=== PATIENT | male | born 1985 | race American Indian/Alaskan Native ===

== ENCOUNTER 2018-12-04 21:34 | Emergency (ER) | payer OTHER ==
[2018-12-04 21:45] VITALS: BMI 19.6
[2018-12-04] MEDS ORDERED: TDAP Vaccine 0.5 mL Syr IM ONE (22:24)
[2018-12-04] MEDS ORDERED: Morphine 2 mg/ml ISec IVP STA (22:26)
[2018-12-04] MEDS ORDERED: Iodixanol 320 MG/ML 100 ML BOTTLE IV ONE ×2 (22:44→23:16)
[2018-12-04 23:27] LABS: BASO # 0.04 K/mm3 (0.0-2.0); BASO % 0.3 % (0.0-3.0); EOS % 0.1 % (1.5-5.0); HEMOGLOBIN 13.5 g/dL (14.0-18.0); LYMPH % 7.2 % (22.0-35.0); MEAN CELL VOLUME 93.4 fl (80.0-105.0); MEAN CORPUSCULAR HEMOGLOBIN 29.9 pg (25.0-35.0); MEAN PLATELET VOLUME 10.2 fl (7.0-11.0); MONO # 0.7 (0.1-0.6); RBC 4.52 10^6/uL (3.5-6.1); RED CELL DISTRIBUTION WIDTH 13.6 % (11.5-14.5); WHITE BLOOD COUNT 14.1 10^3/uL (4.5-11.0)
[2018-12-04 23:30] LABS: ALB/GLOB RATIO 1.4 (1.1-1.8); ALBUMIN 4.5 g/dL (3.0-4.8); ALT/SGPT 22 U/L (7-56); AST/SGOT 53 U/L (17-59); BLOOD UREA NITROGEN 19 mg/dL (7-21); GFR NON-AFRICAN AMERICAN > 60
[2018-12-04 23:47] LABS: INR 0.9; PARTIAL THROMBOPLASTIN TIME 26.5 Seconds (26.9-38.3)
[2018-12-05 00:08] VITALS: BP 130/89
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
[2018-12-05] MEDS ORDERED: Morphine 2 mg/ml ISec IVP STA (01:08)
[2018-12-05 02:12] VITALS: PULSE 81; RESP 23; TEMP 98.2; O2SAT 98
--- NOTE | 2018-12-05 09:28 | CT ---
Date of service: 12/04/2018 PROCEDURE: CT HEAD WITHOUT CONTRAST. HISTORY: headache COMPARISON: None available. TECHNIQUE: Axial computed tomography images were obtained through the head/brain without intravenous contrast. Radiation dose: Total exam DLP = 975.34 mGy-cm. This CT exam was performed using one or more of the following dose reduction techniques: Automated exposure control, adjustment of the mA and/or kV according to patient size, and/or use of iterative reconstruction technique. FINDINGS: HEMORRHAGE: No intracranial hemorrhage. BRAIN: Weinstein-white matter differentiation is preserved. There is no mass, mass effect or abnormal extra-axial fluid collection. There is no territorial infarction. The midline sagittal structures are normal. VENTRICLES: The ventricles are normal in size, shape and configuration. CALVARIUM: There is no calvarial fracture or extracranial soft tissue swelling. There is a small right frontal scalp hematoma. PARANASAL SINUSES: Predominantly clear. MASTOID AIR CELLS: Predominantly clear. OTHER FINDINGS: None. IMPRESSION: No acute intracranial abnormality. Small right frontal scalp hematoma. A preliminary report was provided by [employer].
--- NOTE | 2018-12-05 09:38 | CT ---
Date of service: 12/04/2018 PROCEDURE: CT Cervical Spine without contrast HISTORY: neck pain COMPARISON: None available. TECHNIQUE: Axial computed tomography images were obtained of the cervical spine without the use of intravenous contrast. Coronal and sagittal reformatted images were created and reviewed. Radiation dose: Total exam DLP = 473.53 mGy-cm. This CT exam was performed using one or more of the following dose reduction techniques: Automated exposure control, adjustment of the mA and/or kV according to patient size, and/or use of iterative reconstruction technique. FINDINGS: VERTEBRAE: There is normal alignment of the cervical vertebral bodies. There is loss of normal cervical lordosis with straightening of the cervical spine. Vertebral height is normal. Bone mineralization is normal. There is no acute fracture or traumatic anterior listhesis. The craniocervical junction is normal. The atlantoaxial joint normal. DISCS/SPINAL CANAL/NEURAL FORAMINA: No significant central canal or neural foraminal stenosis. Discs heights are grossly preserved. PARASPINAL SOFT TISSUES: Unremarkable. OTHER FINDINGS: Please referred to CT scan of the facial bones for additional findings in the soft tissues and bones of the face. IMPRESSION: No acute fracture or traumatic anterior listhesis. Straightening of the cervical spine may be positional or related to muscle spasm. A preliminary report was provided by [employer].
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
== END 2018-12-05 02:10 | disposition short-term general hospital (02) ==
LOC: MERGE 21:34 → ED 21:34
DX: S00.81XA Abrasion of other part of head, initial encounter (principal); S02.641A Fracture of ramus of right mandible, initial encounter for closed fracture; S02.609A Fracture of mandible, unspecified, initial encounter for closed fracture; Y04.0XXA Assault by unarmed brawl or fight, initial encounter; Z23 Encounter for immunization; F17.210 Nicotine dependence, cigarettes, uncomplicated
CPT/HCPCS: 70450; 70486; 71260; 72125; 74177; 80053; 85025; 85610; 85730; 90471; 90715; 96374; 96376; 99283; G0480; J2270; Q9967